=== PATIENT | female | born 2005 | race Caucasian/White ===

== ENCOUNTER 2025-03-06 11:58 | Inpatient (IN) ==
[2025-03-06 13:01] LABS: Hematocrit (blood only) 45.8 % (37.0-47.0); Hemoglobin 15.3 g/dl (12.0-16.0); Immature Granulocytes # (auto) 0.09 K/uL (0.01-0.20); Immature Granulocytes % (auto) 0.9 %; Mean Corpuscular Hemoglobin 30.8 pg (25.0-34.0); Mean Corpuscular Volume 92.3 fL (80.0-100.0); Platelet Count 277 K/uL (130-400); RDW Standard Deviation 42.4 fL (36.4-46.3); Red Blood Count 4.96 M/uL (4.20-5.40); White Blood Count 10.05 K/ul (4.8-10.8)
[2025-03-06] MEDS: PLASMA-LYTE A 1,000 ML IV ONE ×2 (13:06→16:37)
[2025-03-06 13:18] LABS: Alanine Aminotransferase 167.0 U/L (7-52); Albumin Globulin Ratio 1.2 (0.9-2); Albumin Level 4.7 gm/dl (3.4-5.0); Alkaline Phosphatase 47.0 U/L (34-104); Anion Gap 15.0 (3-11); Bilirubin,Total 1.3 mg/dl (0.2-1.0); Blood Urea Nitrogen 14.0 mg/dl (6-23); Calcium 10.3 mg/dl (8.6-10.3); Carbon Dioxide 23.0 mmol/L (21-32); Chloride 99.0 mmol/L (98-107); Creatinine Clr Calc Pharmacy 66.7 ml/min; Globulin 3.8 gm/dl (2.5-4.0); Glucose 101.0 mg/dl (70-99(Fasting)); Lipase 12.0 U/L (11-82); Magnesium 2.4 mg/dl (1.7-2.4); Potassium 3.7 mmol/L (3.5-5.1); Sodium 137.0 mmol/L (136-145); Total Protein 8.5 gm/dl (6.0-8.3)
[2025-03-06] MEDS: ONDANSETRON INJ 2 MG/ML 2 ML VIAL IV STA (13:57)
[2025-03-06 15:23] LABS: Appearance Urine Clear (Clear); Bacteria Urine Automated None Seen (None Seen); Cast Urine Automated 0-2 /lpf (0-2); Glucose Urine UA Negative (Negative); RBC Urine Automated 0-2 /hpf (0-2)
--- NOTE | 2025-03-06 16:00 | Emergency Department Note ---
Impression & Plan Pneumoperitoneum, Nausea, Poor appetite, Elevated LFTs, Anxiety, Pneumomediastinum, Subcutaneous air ED Provider Note NAME: CJ SUAREZ AGE: 19 SEX: F : 2005 ARRIVES VIA: Walk-In INFORMANT: Patient, family ED PROVIDER(S): Juan C Macario DO CHIEF COMPLAINT: poor appetite, nausea HPI: This is a 19-year-old female with the PMHx of anxiety and depression presenting to [facility] for further evaluation of nausea. Patient is accompanied by family who provide additional history. Patient states for the last 5 to 6 months she has been dealing with depression and anxiety. She states that she has had a poor appetite as well as early satiety. She states that she has lost approximately 15 pounds. She states that she has been following up with her PCP to manage her symptoms. She states that she was started on 2 new medications (Zoloft and Cyproheptadine) for her symptoms and anxiety last week. She states that she had significant nausea as well as vomiting from the medications. She states that the vomiting was more severe on Friday. She now reports that she is dry heaving and nauseous. She reports intermittent crampy abdominal pain. Pain is worse in the right upper quadrant. They deny fever or chills. No cough or congestion. Denies chest pain or palpitations. No shortness of breath. No urinary complaints. No recent changes in bowel movements. Patient was recently started on too many new medications by her primary care physician given ongoing depression and anxiety. She states that she feels like she is tolerating the Zoloft but that with her medication is worsening her nausea and appetite. Does endorse intermittently using vaping tobacco. She denies possibility of , she is complaint with OCP. Patient offers no other complaints, today. ADDITIONAL HISTORY OBTAINED: Per HPI Chronic Medical/Social Conditions Affecting Care: Per HPI PAST MEDICAL HISTORY: See Below PAST SURGICAL HISTORY: See Below FAMILY HISTORY: See Below SOCIAL HISTORY: See Below HOME MEDICATIONS: See Below ALLERGIES: See Below VITALS: See Below PHYSICAL EXAMINATION: GENERAL: Sitting up in bed, alert, well appearing, well nourished, no distress, non-toxic EYE EXAM: normal conjunctiva. PERRL and EOM's grossly intact. OROPHARYNX: no exudate, no erythema, lips, buccal mucosa, and tongue normal and mucous membranes are moist NECK: supple, no nuchal rigidity, no adenopathy, non-tender LUNGS: Clear to auscultation. Normal chest wall mechanics HEART: no murmurs, regular rate, regular rhythm ABDOMEN: abdomen soft, minimal RUQ TTP, no masses, no rebound or guarding. BACK: Back is symmetrical on inspection and there is no deformity, no midline tenderness, no CVA tenderness. SKIN: no rashes and no bruising UPPER EXTREMITIES: upper extremities are grossly normal. LOWER EXTREMITIES: No pitting edema. NEURO EXAM: Normal sensorium, GCS 15, normal speech, no gross weakness of arms, no gross weakness of legs. She is anxious and tearful. MEDICAL DECISION MAKING: Differential diagnoses includes but not limited to appendicitis, bowel obstruction, diverticulitis, malignancy, nephrolithiasis, gastroenteritis, pancreatitis, hepatobiliary disease, UTI, medication side effect, anxiety, pneumomediastinum, Boerhaave syndrome, esophageal perforation, gastritis, gastric ulcer perforation, duodenal perforation In summary, this is a 19 year old female who presented with nausea. Differential as above. Nursing notes and pertinent past medical records reviewed. Vital signs reviewed and the patient is tachycardic but otherwise afebrile and HDS. History and presentation revealed she has been struggling with weight loss and poor mental health for 5-6 months. She has had a 15 pound weight loss. Worsening nausea and vomiting on Friday after initiating medications for anxiety. She did have significant vomiting on Friday. Physical examination revealed minimal tenderness in the right upper quadrant. Otherwise she appears hypovolemic. Patient appears well otherwise. As a result of my initial evaluation, we will plan for labs and IV fluid resuscitation with antiemetics. Do suspect that this could be related to her worsening mental health. Could be a medication side effect. Would also consider gastrointestinal pathology. She has had bowel function and no abdominal surgical history. Doubt SBO at this time. No significant infectious signs or symptoms. Patient completed laboratory studies and imaging. Results independently interpreted by me are no significant leukocytosis or anemia. Anion gap mildly elevated. Does have a transaminitis with total bilirubin of 1.3, AST of 180, and ALT of 167. Alkaline phosphatase is normal. Lipase is normal. Urinalysis did not show evidence of UTI. Mononucleosis screening was negative. Given transaminitis and early satiety/poor appetite as well as nausea, we will proceed with ultrasound of the gallbladder for further evaluation but feel this is less likely. Right upper quadrant ultrasound was independently interpreted by me as negative for significant cholelithiasis or acute cholecystitis. Unclear etiology of the patient's transaminitis and I recommended further workup as an outpatient with her primary care physician. Patient and family were comfortable with this. She did have significant improvement from IV fluid resuscitation and IV Zofran. The patient feels comfortable with discharge home with Zofran ODT. Will provide this with a togo pack. I recommended increased hydration. I recommend that she continues with therapy and her Zoloft. Do feel it is reasonable to stop the other medication if she is having potential side effects. Patient will return for failure to improve or any clinical deterioration. Formal ultrasound was unremarkable of the gallbladder. I was preparing to discharge the patient but she has recurrent nausea and right-sided abdominal pain. Patient states that she is anxious and she feels comfortable going home. Patient is tearful and crying. I do not feel comfortable discharging the patient at this point. Will provide further IV fluid resuscitation as well as IV droperidol. Will obtain a CT abdomen/pelvis for further investigation into the patient's symptoms. CT abdomen/pelvis independently reviewed by me shows pneumoperitoneum. She has subcutaneous air extending into the soft tissue of the abdominal wall and the right lower extremity as well. Will add on broad-spectrum antibiotics. Stat read by radiology requested. Connected with [facility] radiology. Dr. Knox connected to pa at [id number]. Pneumomediastinum into the retroperitoneum which is concerning for possible GI rupture source. Attempt PO contrast with NGT if necessary for CT CAP. The patient was discussed with Dr. Sharif (General Surgery). He recommended proceeding with CT prior to possible transfer. Patient signed out to Dr. George pending CT results. Consults/Care Managements Discussions: Per MDM ER treatment provided: See above Procedures:none Critical Care: None The chart was completed utilizing [employer] voice recognition software. Grammatical errors, random word insertions, pronoun errors, and incomplete sentences are an occasional consequence of this system due to software limitations, ambient noise, and hardware issues. Any formal questions or concerns about the content, text, or information contained within the body of this dictation should be directly addressed to the physician for clarification. Past Med/Surg History Problem List (Updated 03/08/25 @ 09:57 by Juan C Macario DO) Subcutaneous air (Acute) Pneumomediastinum (Acute) Pneumoperitoneum (Acute) Starvation ketoacidosis Pneumoperitoneum Pneumomediastinum Intractable nausea and vomiting Anxiety (Acute) Elevated LFTs (Acute) Poor appetite (Acute) Nausea (Acute) Scalp laceration (Acute) Family History (Updated 03/06/25 @ 22:38 by Ruddy Jenkins MD) Mother Endometriosis Social History (Updated 03/07/25 @ 12:12 by Harjeet Narayanan MD) Smoking Status: Former smoker Tobacco Type: E-cigarettes / Vaping Second Hand Exposure: No; Do You Dip or Chew Tobacco: No; Tobacco Cessation Education Requested by Patient: No Hx Alcohol Use: No Hx Substance Use: No Preferred Language: [place] Communication Ability: Effective Clinical Project Manager Required: No Beliefs That Will Affect Care: None Current Living Situation: Family Other Information That Helps Us Care for You: No Feels Safe at Home: Yes Safety Concerns: Feels Safe At This Time Assistive Devices: None Allergies Allergies Allergy/AdvReac Type Severity Reaction Status Date / Time No Known Allergies Allergy Unknown Verified 05/15/15 15:59 Home Meds Home Medications Medication Instructions Recorded Confirmed Flintstones Multivitamin 2 tabs PO DAILY ##0 05/15/15 03/06/25 cyproheptadine 4 mg tablet 4 mg PO UD 03/06/25 03/06/25 norethindrone acetate 1.5 1 tab PO DAILY 03/06/25 03/06/25 mg-ethinyl estradiol 30 mcg tablet ([place]) sertraline 25 mg tablet 25 mg PO DAILY 03/06/25 03/06/25 Results & Data (ED) Vital Signs Vital Signs - 24 hr 03/06/25 12:04 03/06/25 12:30 03/06/25 12:30 Temperature 36.9 C Temperature Source Temporal Artery Scan Pulse Rate 138 H 91 H Pulse Rate [Apical] 91 H Respiratory Rate 20 16 16 Respiratory Effort / Characteristics Non-Labored Respiratory Depth Normal Blood Pressure 152/81 H Blood Pressure [Right Arm] 147/91 H Blood Pressure Mean 104 Blood Pressure Mean [Right Arm] 109 Pulse Oximetry 99 99 99 Oxygen Delivery Method Room Air Room Air Room Air Sepsis Recent Fever Within 48 Hours No Sepsis New/Unexplained Change in Mental Status No Sepsis Action Taken by Nursing No Action Required 03/06/25 13:00 03/06/25 13:19 03/06/25 15:00 Temperature Temperature Source Pulse Rate 78 Pulse Rate [Apical] 89 84 Respiratory Rate 18 16 Respiratory Effort / Characteristics Respiratory Depth Blood Pressure Blood Pressure [Right Arm] 140/87 141/84 H Blood Pressure Mean Blood Pressure Mean [Right Arm] 104 103 Pulse Oximetry 99 98 Oxygen Delivery Method Room Air Room Air Sepsis Recent Fever Within 48 Hours Sepsis New/Unexplained Change in Mental Status Sepsis Action Taken by Nursing 03/06/25 17:00 03/06/25 17:30 03/06/25 19:00 Temperature Temperature Source Pulse Rate 77 Pulse Rate [Apical] 81 60 Respiratory Rate 18 16 Respiratory Effort / Characteristics Respiratory Depth Blood Pressure Blood Pressure [Right Arm] 112/70 113/67 Blood Pressure Mean Blood Pressure Mean [Right Arm] 84 82 Pulse Oximetry 97 96 Oxygen Delivery Method Room Air Room Air Sepsis Recent Fever Within 48 Hours Sepsis New/Unexplained Change in Mental Status Sepsis Action Taken by Nursing Laboratory Data 03/08/25 05:49 03/08/25 05:49 Lab Results 03/06/25 03/06/25 03/06/25 Range/Units 12:17 14:02 14:45 WBC 10.05 (4.8-10.8) K/ul RBC 4.96 (4.20-5.40) M/uL Hgb 15.3 (12.0-16.0) g/dl Hct 45.8 (37.0-47.0) % MCV 92.3 (80.0-100.0) fL MCH 30.8 (25.0-34.0) pg MCHC 33.4 (32.0-36.0) g/dL RDW Std Deviation 42.4 (36.4-46.3) fL RDW Coeff of Kristyn 12.4 (11.5-14.5) % Plt Count 277 (130-400) K/uL MPV 11.4 (9.4-12.4) fL Immature Gran % (Auto) 0.9 % Neut % (Auto) 81.4 % Lymph % (Auto) 12.9 % [place] % (Auto) 4.0 % Eos % (Auto) 0.4 % Baso % (Auto) 0.4 % Neut # (Auto) 8.18 H (1.40-6.50) K/uL Lymph # (Auto) 1.30 (1.20-3.40) K/uL [place] # (Auto) 0.40 (0.11-0.59) K/uL Eos # (Auto) 0.04 (0.00-0.50) K/uL Baso # (Auto) 0.04 (0.00-0.20) K/uL Immature Gran # (Auto) 0.09 (0.01-0.20) K/uL Sodium 137 (136-145) mmol/L Potassium 3.7 (3.5-5.1) mmol/L Chloride 99 (98-107) mmol/L Carbon Dioxide 23 (21-32) mmol/L Anion Gap 15 H (3-11) BUN 14 (6-23) mg/dl Creatinine 1.06 (0.6-1.2) mg/dl Est Cr Clr Drug Dosing 66.7 ml/min eGFR 77.13 BUN/Creatinine Ratio 13.2 (10-20) Glucose 101 H (70-99(Fasting)) mg/dl Calcium 10.3 (8.6-10.3) mg/dl Magnesium 2.4 (1.7-2.4) mg/dl Total Bilirubin 1.3 H (0.2-1.0) mg/dl AST 180 H (13-39) U/L ALT 167 H (7-52) U/L Alkaline Phosphatase 47 (34-104) U/L Total Protein 8.5 H (6.0-8.3) gm/dl Albumin 4.7 (3.4-5.0) gm/dl Globulin 3.8 (2.5-4.0) gm/dl Albumin/Globulin Ratio 1.2 (0.9-2) Lipase 12 (11-82) U/L HCG, Quant 1 mIU/ml Urine Color Yellow Urine Appearance Clear (Clear) Urine pH 7.0 (4.5-7.5) Ur Specific [place] 1.030 (1.000-1.030) Urine Protein Trace H (Negative) Urine Glucose (UA) Negative (Negative) Urine Ketones 3+ H (Negative) Urine Blood Negative (Negative) Urine Nitrite Negative (Negative) Urine Bilirubin Negative (Negative) Urine Urobilinogen Negative (Negative) Ur Leukocyte Esterase Trace H (Negative) Urine WBC (Auto) 6-10 H (0-5) /hpf Urine RBC (Auto) 0-2 (0-2) /hpf U Hyaline Cast (Auto) 0-2 (0-2) /lpf U Epithel Cells (Auto) 3-5 H (0-2) /hpf Urine Bacteria (Auto) None Seen (None Seen) Urine Comment Monoscreen Negative (Negative) Administered Medications Dextromethorphan Polymer Complex (Dextromethorphan Polymr Complx 30mg/5 Ml Btl) 30 mg PO Q12H ANTOINETTE Stop: 04/06/25 11:59 Last Admin: 03/07/25 23:25 Dose: 30 mg Documented By: Admin: 03/07/25 12:39 Dose: 30 mg Documented By: keof Pantoprazole Sodium (Protonix) 40 mg in 10 mls @ 5 mls/min IV DAILY ANTOINETTE Stop: 04/05/25 23:33 Last Admin: 03/07/25 09:08 Dose: 5 mls/min Documented By: Admin: 03/07/25 00:25 Dose: 5 mls/min Documented By: MATILDA Acetaminophen (Ofirmev) 1,000 mg in 100 mls @ 400 mls/hr IV Q8H PRN PRN Reason: Pain or Fever Stop: 03/09/25 23:33 Last Infusion: 03/07/25 10:58 Dose: Infused Documented By: keof Admin: 03/07/25 10:43 Dose: 400 mls/hr Documented By: andrei Dextrose/Sodium Chloride (D5w And Nss) 1,000 mls @ 100 mls/hr IV .Q10H ANTOINETTE Stop: 03/08/25 17:59 Last Admin: 03/07/25 23:24 Dose: 100 mls/hr Documented By: Infusion: 03/07/25 22:39 Dose: Infused Documented By: Admin: 03/07/25 12:39 Dose: 100 mls/hr Documented By: keof Melatonin (Melatonin 3 Mg Tab) 3 mg PO HS PRN PRN Reason: Sleep Stop: 04/06/25 22:03 Last Admin: 03/07/25 22:07 Dose: 3 mg Documented By: FILIBERTO Ondansetron HCl (Ondansetron Inj 2 Mg/Ml 2 Ml Vial) 4 mg IV Q6H ANTOINETTE Stop: 04/05/25 23:33 Last Admin: 03/08/25 06:29 Dose: 4 mg Documented By: Admin: 03/07/25 23:24 Dose: 4 mg Documented By: Admin: 03/07/25 17:13 Dose: 4 mg Documented By: dlf Admin: 03/07/25 11:42 Dose: 4 mg Documented By: dlf Admin: 03/07/25 05:22 Dose: 4 mg Documented By: Admin: 03/07/25 00:25 Dose: 4 mg Documented By: MATILDA Discontinued Medications Droperidol (Droperidol 5 Mg/2 Ml Vial) 0.625 mg IV ONE STA Stop: 03/06/25 16:14 Last Admin: 03/06/25 16:37 Dose: 0.625 mg Documented By: chelle Parenteral Electrolytes (Plasma-Lyte A Ph 7.4) 1,000 mls @ 999 mls/hr IV .Q1H1M ONE Stop: 03/06/25 13:38 Last Infusion: 03/06/25 14:43 Dose: Infused Documented By: amkedar Admin: 03/06/25 13:06 Dose: 999 mls/hr Documented By: amkedar Parenteral Electrolytes (Plasma-Lyte A Ph 7.4) 1,000 mls @ 999 mls/hr IV .Q1H1M ONE Stop: 03/06/25 17:13 Last Infusion: 03/06/25 17:56 Dose: Infused Documented By: amkedar Admin: 03/06/25 16:37 Dose: 999 mls/hr Documented By: amkedar Piperacillin Sod/Tazobactam Sod (Zosyn) 4.5 gm in 100 mls @ 200 mls/hr IV NOW ONE; Protocol Stop: 03/06/25 18:15 Last Infusion: 03/06/25 19:07 Dose: Infused Documented By: amg Admin: 03/06/25 17:56 Dose: 200 mls/hr Documented By: amg Potassium Chloride/Sodium Chloride (Normal Saline W/20 Meq Kcl) 20 meq in 1,000 mls @ 100 mls/hr IV .Q10H ANTOINETTE Stop: 03/07/25 19:33 Last Infusion: 03/07/25 12:47 Dose: Infused Documented By: dlf Infusion: 03/07/25 12:44 Dose: 0 mls/hr Documented By: andrei Admin: 03/07/25 09:09 Dose: 100 mls/hr Documented By: Infusion: 03/07/25 09:09 Dose: Infused Documented By: Admin: 03/07/25 00:16 Dose: 100 mls/hr Documented By: MATILDA Piperacillin Sod/Tazobactam Sod (Zosyn) 4.5 gm in 100 mls @ 25 mls/hr IV Q8H [facility]; Protocol Stop: 03/09/25 01:59 Last Infusion: 03/08/25 07:52 Dose: Infused Documented By: Admin: 03/08/25 03:56 Dose: 25 mls/hr Documented By: Infusion: 03/07/25 21:56 Dose: Infused Documented By: Admin: 03/07/25 17:13 Dose: 25 mls/hr Documented By: andrei Infusion: 03/07/25 13:08 Dose: Infused Documented By: andrei Admin: 03/07/25 09:08 Dose: 25 mls/hr Documented By: Infusion: 03/07/25 05:27 Dose: Infused Documented By: Admin: 03/07/25 01:37 Dose: 25 mls/hr Documented By: MATILDA Ioversol (Optiray 320 100ml) 90 ml IV ONCE ONE Stop: 03/06/25 17:26 Last Admin: 03/06/25 17:25 Dose: 90 ml Documented By: HARRISON Ondansetron HCl (Ondansetron Inj 2 Mg/Ml 2 Ml Vial) 4 mg IV NOW STA Stop: 03/06/25 13:50 Last Admin: 03/06/25 13:57 Dose: 4 mg Documented By: chelle Ondansetron HCl (Ondansetron Home Pack 4mg Od Tab) 1 each PO NOW ONE Stop: 03/06/25 16:35 Last Admin: 03/06/25 18:57 Dose: Not Given Documented By: CHRISTINE Ondansetron HCl (Ondansetron Inj 2 Mg/Ml 2 Ml Vial) Confirm Administered Dose 4 mg .ROUTE .STK-MED ONE Stop: 03/06/25 18:54 Last Admin: 03/06/25 18:55 Dose: 4 mg Documented By: DARREL Imaging Data Radiologist's Impression: Gallbladder Ultrasound 03/06/25 13:44 EXAM: US Abdomen Limited Gallbladder INDICATION: Nausea, pain and elevated liver function tests. TECHNIQUE: Real-time ultrasound of the gallbladder with image documentation. COMPARISON: No relevant prior studies available. FINDINGS: Gallbladder: No gallstones, wall thickening or surrounding fluid. Common bile duct: No significant abnormality noted. No stones. No dilation. Pancreas: No significant abnormality noted. IMPRESSION: Normal gallbladder ultrasound. ACT 112: N/A Electronically signed by Irena Knox 03-06-2025 4:04 PM Abdomen/Pelvis CT 03/06/25 16:13 EXAM: CT Abdomen and Pelvis With Intravenous Contrast INDICATION: Nausea and vomiting. TECHNIQUE: Axial computed tomography images of the abdomen and pelvis with intravenous contrast. Sagittal and coronal reformatted images were created and reviewed. This CT exam was performed using one or more of the following dose reduction techniques: automated exposure control, adjustment of the mA and/or kV according to patient size, and/or use of iterative reconstruction technique. CONTRAST: 90 ml of Optiray 320 was administered intravenously. COMPARISON: No relevant prior studies available. FINDINGS: Limitations: None. Lung bases: No abnormality noted. Pleural space: No visualized pleural effusion or pneumothorax. Heart: No abnormality noted. Mediastinum: There is extensive pneumomediastinum, retroperitoneal emphysema and small amounts of free intraperitoneal air. ABDOMEN: Liver: No abnormality noted. Gallbladder and bile ducts: No calcified stones or surrounding fluid. No ductal dilation. Pancreas: Homogeneous enhancement. No mass, inflammation or ductal dilation. Spleen: No significant abnormality noted. Adrenals: No significant abnormality noted. Kidneys and ureters: Normal enhancement. No mass, hydronephrosis or visualized stone. Stomach and bowel: Intestinal assessment is limited in the absence of enteric contrast. PELVIS: Appendix: No findings to suggest acute appendicitis. Bladder: No filling defects to suggest mass or large stone. No inflammation. Reproductive: No abnormalities noted. ABDOMEN and PELVIS: Intraperitoneal space: No free air. No significant fluid collection. Bones/joints: No acute changes. Soft tissues: There is subcutaneous gas extending along the flanks into the right groin. Vasculature: No abdominal aortic aneurysm. Lymph nodes: No pathologically enlarged lymph nodes. IMPRESSION: Extensive pneumoperitoneum, emphysematous changes in the retroperitoneum, small amounts of free air in the peritoneal cavity and dissecting subcutaneous gas in the flanks to the right groin. These findings generally reflect perforation possibly from the duodenum into the retroperitoneum and extending into the chest. Repeat CT of the abdomen and pelvis and scan of the chest recommended following oral contrast to assess for gastric perforation. Findings discussed with Juan C at 6pm . ACT 112: N/A Electronically signed by Irena Knox 03-06-2025 6:02 PM Abdomen/Pelvis CT 03/06/25 18:00 EXAMINATION: CT of the chest, abdomen and pelvis performed without the administration of IV contrast, with oral contrast TECHNIQUE: Helical CT images from the lung apices through the symphysis pubis were obtained without IV contrast, and with oral contrast. Coronal and sagittal reformatted images were generated at a workstation for further assessment. Dose reduction techniques were achieved by using automatic exposure control and/or adjustment of mA and/or kV according to patient size and/or use of iterative reconstruction technique. COMPARISON: Same-day CT abdomen/pelvis HISTORY: Pneumomediastinum FINDINGS: Redemonstrated extensive pneumomediastinum, with soft tissue gas throughout the base of the neck, the upper portions of the back and axillary regions. The free air extends into the abdomen/pelvis region, primarily involving the pneumoperitoneum, surrounding the kidneys, and tracking into the iliopsoas musculature, and into the subcutaneous tissues of the groin, primarily on the right, and into the anterior hip and thigh musculature fascial planes. There is air seen in the prevesical space. There does not appear to be significant intraperitoneal air. There is also free air tracking anterior and posterior to the liver and spleen. Oral contrast administered, with some seen in the lower esophagus and stomach, also into the duodenum, and throughout the proximal small bowel, without extravasation. There is also no free fluid in the chest or abdomen. No consolidation of the lungs. No pneumothorax. Air seems to track along the surface of the hemithoraces, however which appears deep to the parietal pleura without resulting in pneumothorax. A few curvilinear areas of air is seen to track through the lung parenchyma as seen in the left lower lobe on series 3 image 53. No solid organ injury in the chest, abdomen or pelvis. The abdominal and pelvic organs appear unchanged from the CT from earlier today. The heart, pulmonary artery and thoracic aorta are within normal limits. IMPRESSION: Extensive pneumomediastinum, as well as air tracking into the subcutaneous tissues of the chest and body wall. Emphysema tracking below the diaphragm, appears to be primarily retroperitoneal, and tracks into the inguinal soft tissues and the fascial planes of the hip musculature. There does not appear to be true free air in the peritoneum. 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 Findings discussed with Dr. Macario by Dr. Mcmullen at 7:15 PM, 03/06/2025 Electronically signed by Regino Mcmullen 03-06-2025 7:[address] 03/06/25 18:00 EXAMINATION: CT of the chest, abdomen and pelvis performed without the administration of IV contrast, with oral contrast TECHNIQUE: Helical CT images from the lung apices through the symphysis pubis were obtained without IV contrast, and with oral contrast. Coronal and sagittal reformatted images were generated at a workstation for further assessment. Dose reduction techniques were achieved by using automatic exposure control and/or adjustment of mA and/or kV according to patient size and/or use of iterative reconstruction technique. COMPARISON: Same-day CT abdomen/pelvis HISTORY: Pneumomediastinum FINDINGS: Redemonstrated extensive pneumomediastinum, with soft tissue gas throughout the base of the neck, the upper portions of the back and axillary regions. The free air extends into the abdomen/pelvis region, primarily involving the pneumoperitoneum, surrounding the kidneys, and tracking into the iliopsoas musculature, and into the subcutaneous tissues of the groin, primarily on the right, and into the anterior hip and thigh musculature fascial planes. There is air seen in the prevesical space. There does not appear to be significant intraperitoneal air. There is also free air tracking anterior and posterior to the liver and spleen. Oral contrast administered, with some seen in the lower esophagus and stomach, also into the duodenum, and throughout the proximal small bowel, without extravasation. There is also no free fluid in the chest or abdomen. No consolidation of the lungs. No pneumothorax. Air seems to track along the surface of the hemithoraces, however which appears deep to the parietal pleura without resulting in pneumothorax. A few curvilinear areas of air is seen to track through the lung parenchyma as seen in the left lower lobe on series 3 image 53. No solid organ injury in the chest, abdomen or pelvis. The abdominal and pelvic organs appear unchanged from the CT from earlier today. The heart, pulmonary artery and thoracic aorta are within normal limits. IMPRESSION: Extensive pneumomediastinum, as well as air tracking into the subcutaneous tissues of the chest and body wall. Emphysema tracking below the diaphragm, appears to be primarily retroperitoneal, and tracks into the inguinal soft tissues and the fascial planes of the hip musculature. There does not appear to be true free air in the peritoneum. 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 Findings discussed with Dr. Macario by Dr. Mcmullen at 7:15 PM, 03/06/2025 Electronically signed by Regino Mcmullen 03-06-2025 7:18 PM Discharge Plan Visit Data Chief Complaint: Illness Stated Complaint: SICK ED Provider: Juna George Discharge Problem: Pneumoperitoneum, Nausea, Poor appetite, Elevated LFTs, Anxiety, Pneumomediastinum, Subcutaneous air Patient Disposition: Admitted As Inpatient Condition: Fair Discharge Instructions Interventions: ED Discharge Assessment Last Done: 03/06/25 23:20
--- NOTE | 2025-03-06 16:04 | Ultrasound Report ---
EXAM: US Abdomen Limited Gallbladder INDICATION: Nausea, pain and elevated liver function tests. TECHNIQUE: Real-time ultrasound of the gallbladder with image documentation. COMPARISON: No relevant prior studies available. FINDINGS: Gallbladder: No gallstones, wall thickening or surrounding fluid. Common bile duct: No significant abnormality noted. No stones. No dilation. Pancreas: No significant abnormality noted. IMPRESSION: Normal gallbladder ultrasound. ACT 112: N/A Electronically signed by Irena Knox 03-06-2025 4:04 PM
[2025-03-06] MEDS: DROPERIDOL 5 MG/2 ML VIAL IV STA (16:37)
[2025-03-06] MEDS: OPTIRAY 320 100ml IV ONE (17:25)
[2025-03-06] MEDS: PIPERACILLIN/TAZOBACTAM 4.5 GM/100 ML BAG IV ONE (17:56)
--- NOTE | 2025-03-06 18:02 | CT Scan Report ---
EXAM: CT Abdomen and Pelvis With Intravenous Contrast INDICATION: Nausea and vomiting. TECHNIQUE: Axial computed tomography images of the abdomen and pelvis with intravenous contrast. Sagittal and coronal reformatted images were created and reviewed. This CT exam was performed using one or more of the following dose reduction techniques: automated exposure control, adjustment of the mA and/or kV according to patient size, and/or use of iterative reconstruction technique. CONTRAST: 90 ml of Optiray 320 was administered intravenously. COMPARISON: No relevant prior studies available. FINDINGS: Limitations: None. Lung bases: No abnormality noted. Pleural space: No visualized pleural effusion or pneumothorax. Heart: No abnormality noted. Mediastinum: There is extensive pneumomediastinum, retroperitoneal emphysema and small amounts of free intraperitoneal air. ABDOMEN: Liver: No abnormality noted. Gallbladder and bile ducts: No calcified stones or surrounding fluid. No ductal dilation. Pancreas: Homogeneous enhancement. No mass, inflammation or ductal dilation. Spleen: No significant abnormality noted. Adrenals: No significant abnormality noted. Kidneys and ureters: Normal enhancement. No mass, hydronephrosis or visualized stone. Stomach and bowel: Intestinal assessment is limited in the absence of enteric contrast. PELVIS: Appendix: No findings to suggest acute appendicitis. Bladder: No filling defects to suggest mass or large stone. No inflammation. Reproductive: No abnormalities noted. ABDOMEN and PELVIS: Intraperitoneal space: No free air. No significant fluid collection. Bones/joints: No acute changes. Soft tissues: There is subcutaneous gas extending along the flanks into the right groin. Vasculature: No abdominal aortic aneurysm. Lymph nodes: No pathologically enlarged lymph nodes. IMPRESSION: Extensive pneumoperitoneum, emphysematous changes in the retroperitoneum, small amounts of free air in the peritoneal cavity and dissecting subcutaneous gas in the flanks to the right groin. These findings generally reflect perforation possibly from the duodenum into the retroperitoneum and extending into the chest. Repeat CT of the abdomen and pelvis and scan of the chest recommended following oral contrast to assess for gastric perforation. Findings discussed with Juan C at 6pm . ACT 112: N/A Electronically signed by Irena Knox 03-06-2025 6:02 PM
[2025-03-06] MEDS: ONDANSETRON INJ 2 MG/ML 2 ML VIAL ONE (18:55)
[2025-03-06] MEDS: ONDANSETRON HOME PACK 4MG OD TAB PO ONE (18:57)
--- NOTE | 2025-03-06 19:18 | CT Scan Report ---
EXAMINATION: CT of the chest, abdomen and pelvis performed without the administration of IV contrast, with oral contrast TECHNIQUE: Helical CT images from the lung apices through the symphysis pubis were obtained without IV contrast, and with oral contrast. Coronal and sagittal reformatted images were generated at a workstation for further assessment. Dose reduction techniques were achieved by using automatic exposure control and/or adjustment of mA and/or kV according to patient size and/or use of iterative reconstruction technique. COMPARISON: Same-day CT abdomen/pelvis HISTORY: Pneumomediastinum FINDINGS: Redemonstrated extensive pneumomediastinum, with soft tissue gas throughout the base of the neck, the upper portions of the back and axillary regions. The free air extends into the abdomen/pelvis region, primarily involving the pneumoperitoneum, surrounding the kidneys, and tracking into the iliopsoas musculature, and into the subcutaneous tissues of the groin, primarily on the right, and into the anterior hip and thigh musculature fascial planes. There is air seen in the prevesical space. There does not appear to be significant intraperitoneal air. There is also free air tracking anterior and posterior to the liver and spleen. Oral contrast administered, with some seen in the lower esophagus and stomach, also into the duodenum, and throughout the proximal small bowel, without extravasation. There is also no free fluid in the chest or abdomen. No consolidation of the lungs. No pneumothorax. Air seems to track along the surface of the hemithoraces, however which appears deep to the parietal pleura without resulting in pneumothorax. A few curvilinear areas of air is seen to track through the lung parenchyma as seen in the left lower lobe on series 3 image 53. No solid organ injury in the chest, abdomen or pelvis. The abdominal and pelvic organs appear unchanged from the CT from earlier today. The heart, pulmonary artery and thoracic aorta are within normal limits. IMPRESSION: Extensive pneumomediastinum, as well as air tracking into the subcutaneous tissues of the chest and body wall. Emphysema tracking below the diaphragm, appears to be primarily retroperitoneal, and tracks into the inguinal soft tissues and the fascial planes of the hip musculature. There does not appear to be true free air in the peritoneum. 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 Findings discussed with Dr. Macario by Dr. Mcmullen at 7:15 PM, 03/06/2025 Electronically signed by Regino Mcmullen 03-06-2025 7:18 PM
--- NOTE | 2025-03-06 19:39 | Surgery Consultation ---
Date of Consultation March 06, 2025 Assessment & Plan (1) Pneumomediastinum: The patient is a 19-year-old female who presented to the emergency department with complaints of on going nausea and abdominal pain. Over the last few months she has had depression and anxiety, causing her to have overall poor appetite along with an approximate 15 pound weight loss. Last week she has been started two medications (Zoloft and Cyproheptadine) to help with her symptoms by her PCP and since then she has had nausea and recently some episodes of vomiting from the medications. Her vomiting was the most severe on Friday however now she is having more dry-heaving and intermittent R UQ/epigastric abdominal pain. The patient underwent workup and labs unremarkable, VSS, but CT imaging was concerning for pneumomediastinum along with pneumoperitoneum. Emergency room provider did speak to attending surgeon information services tech, Dr. Sharif, who recommended repeating the imaging with oral contrast to further evaluate source of free air. While repeat imaging was pending, the patient was seen and evaluated at bedside. She is resting comfortably, VSS, and she has no signs of acute abdomen on exam that would warrant emergent surgical intervention. Repeat imaging was obtained showing extensive pneumomediastinum as well as air tracking into the subcutaneous tissue of the chest and body wall along with emphysema tracking below the diaphragm primarily retroperitoneal with no true free air in the peritoneum. Likely this is related to alveolar rupture. Recommend with these findings the emergency room provider reach out to our pulmonology team to further discuss patient's case for possible admission here vs transfer to tertiary center. Pulmonology feels patient is stable for admission here with [id number] antitussives and antiemetics and close respiratory monitoring. Patient will be admitted to the medical service at this time. Appreciate pulmonology input and recommendations. From a general surgery perspective, no intervention warranted. Please re-call with any questions or concerns (2) Pneumoperitoneum: (3) Intractable nausea and vomiting: History of Present Illness Reason for Consultation: Pneumomediastinum Pneumoperitoneum History of Present Illness The patient is a 19-year-old female who presented to the emergency department with complaints of on going nausea and abdominal pain. The patient states that over the last few months she has had depression and anxiety, causing her to have overall poor appetite along with an approximate 15 pound weight loss. Last week she has been started two medications (Zoloft and Cyproheptadine) to help with her symptoms by her PCP and since then she has had nausea and recently some episodes of vomiting from the medications. Her vomiting was the most severe on Friday however now she is having more dry-heaving. She states that her abdominal pain is intermittent, and crampy in nature, and mostly is located in her RUQ/epigastric region. She denies any changes in bowel or bladder habits, new onset of fevers or chills, also denies CP or SOB. Due to the patient's symptoms she came to the emergency department for further evaluation. Upon workup labs are unremarkable however CT imaging obtained with concern of significant amount of pneumomediastinum and pneumoperitoneum. The patient's case was discussed with attending surgeon information services tech, Dr. Sharif, who recommended repeating the imaging with oral contrast and general surgery team would evaluate the patient. The patient was seen and evaluated this evening at bedside in the emergency department. She is accompanied by her family. She is resting comfortably in bed, VSS, and is nontoxic appearing. The patient states her abdominal pain is very mild at this time however she does feel nauseous after drinking the oral contrast. She otherwise denies any recent trauma or falls. She has no previous abdominal surgical history. Allergies Allergy/AdvReac Type Severity Reaction Status Date / Time No Known Allergies Allergy Unknown Verified 05/15/15 15:59 Home Medications Medication Instructions Recorded Confirmed Type Flintssantiagoes Multivitamin 2 tabs PO DAILY ##0 05/15/15 03/06/25 History cyproheptadine 4 mg tablet 4 mg PO UD 03/06/25 03/06/25 History norethindrone acetate 1.5 1 tab PO DAILY 03/06/25 03/06/25 History mg-ethinyl estradiol 30 mcg tablet ([place]) sertraline 25 mg tablet 25 mg PO DAILY 03/06/25 03/06/25 History Patient History Family History (Updated 03/06/25 @ 22:38 by Ruddy Jenkins MD) Mother Endometriosis Social History Smoking Status: Never smoker Preferred Language: Jamaican Feels Safe at Home: Yes Review of Systems Constitutional: no fever, no chills and no weakness Respiratory: no cough, no chest congestion and no dyspnea Cardiovascular: no chest pain, no palpitations and no syncope Gastrointestinal: as per Subjective / HPI, + abdominal pain, + early satiety, + nausea and + vomiting; no change in bowel habits Genitourinary: no difficulty urinating and no hematuria Physical Exam Constitutional: WD/WN, vitals as above Respiratory: normal respiratory effort, lungs clear to auscultation Cardiovascular: Rate/Rhythm: regular rate Gastrointestinal (Abdomen): Abdomen soft, nondistended, minimal TTP in the epigastric region No rebound, guarding, or signs of peritonitis Skin: no rashes, warm and dry Results & Data Vital Signs (Past 12 Hours) Vital Signs Temp Pulse Pulse Resp BP BP Pulse Ox 03/06/25 17:30 77 03/06/25 17:00 81 18 112/70 97 03/06/25 15:00 84 16 141/84 H 98 03/06/25 13:19 78 03/06/25 13:00 89 18 140/87 99 03/06/25 12:30 91 H 16 99 03/06/25 12:30 91 H 16 147/91 H 99 03/06/25 12:04 36.9 C 138 H 20 152/81 H 99 O2 Del Method 03/06/25 17:30 03/06/25 17:00 Room Air 03/06/25 15:00 Room Air 03/06/25 13:19 03/06/25 13:00 Room Air 03/06/25 12:30 Room Air 03/06/25 12:30 Room Air 03/06/25 12:04 Room Air Diagnostic Findings EXAMINATION: CT of the chest, abdomen and pelvis performed without the administration of IV contrast, with oral contrast TECHNIQUE: Helical CT images from the lung apices through the symphysis pubis were obtained without IV contrast, and with oral contrast. Coronal and sagittal reformatted images were generated at a workstation for further assessment. Dose reduction techniques were achieved by using automatic exposure control and/or adjustment of mA and/or kV according to patient size and/or use of iterative reconstruction technique. COMPARISON: Same-day CT abdomen/pelvis HISTORY: Pneumomediastinum FINDINGS: Redemonstrated extensive pneumomediastinum, with soft tissue gas throughout the base of the neck, the upper portions of the back and axillary regions. The free air extends into the abdomen/pelvis region, primarily involving the pneumoperitoneum, surrounding the kidneys, and tracking into the iliopsoas musculature, and into the subcutaneous tissues of the groin, primarily on the right, and into the anterior hip and thigh musculature fascial planes. There is air seen in the prevesical space. There does not appear to be significant intraperitoneal air. There is also free air tracking anterior and posterior to the liver and spleen. Oral contrast administered, with some seen in the lower esophagus and stomach, also into the duodenum, and throughout the proximal small bowel, without extravasation. There is also no free fluid in the chest or abdomen. No consolidation of the lungs. No pneumothorax. Air seems to track along the surface of the hemithoraces, however which appears deep to the parietal pleura without resulting in pneumothorax. A few curvilinear areas of air is seen to track through the lung parenchyma as seen in the left lower lobe on series 3 image 53. No solid organ injury in the chest, abdomen or pelvis. The abdominal and pelvic organs appear unchanged from the CT from earlier today. The heart, pulmonary artery and thoracic aorta are within normal limits. IMPRESSION: Extensive pneumomediastinum, as well as air tracking into the subcutaneous tissues of the chest and body wall. Emphysema tracking below the diaphragm, appears to be primarily retroperitoneal, and tracks into the inguinal soft tissues and the fascial planes of the hip musculature. There does not appear to be true free air in the peritoneum. 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 PG Care Time/CCT Total # of Minutes Spent Total Time Spent with Patient: Total time spent is greater than 50% in coordination of care (as documented) at patient's floor/unit and/or counseling patient: [place] [address] IN/OBS CONSULT LVL 2,35M Patient Type New History Problem Focused Exam Problem Focused Medical Decision Making Low Complexity Diagnoses Pneumomediastinum J98.2 Pneumoperitoneum K66.8 Intractable nausea and vomiting R11.2
--- NOTE | 2025-03-06 20:36 | Emergency Department Note ---
ED Visit Note Patient is a 19-year-old female who was signed out to me by Dr. Steve following initial CT which showed a fair amount of free air. He discussed with general surgery and the request was obtaining CT chest abdomen pelvis with oral contrast. This was completed. I spoke with the radiologist. They believe that this is likely from a areolar rupture. I then discussed the case with Radha from general surgery who notes that patient could stay and be admitted here as there is nothing from their perspective surgical. I discussed with Dr. Smith from pulmonology. He also agrees with admission here and [id number] antitussives and antiemetics and close monitoring. Case was discussed with Dr. Jenkins for further evaluation management treatment. Patient was updated at bedside. She remained comfortable. .
--- NOTE | 2025-03-06 20:50 | History & Physical Report ---
Date of Service March 06, 2025 Assessment & Plan (1) Anxiety: (2) Intractable nausea and vomiting: (3) Pneumomediastinum: (4) Pneumoperitoneum: Plan Pneumomediastinum R/O bowel perforation due to intractable nausea, vomiting Pneumoperitoneum likely due to valvular rupture --CT: Extensive pneumomediastinum, as well as air tracking into the subcutaneous tissues of the chest and body wall. Emphysema tracking below the diaphragm, appears to be primarily retroperitoneal, and tracks into the inguinal soft tissues and the fascial planes of the hip musculature. There does not appear to be true free air in the peritoneum. 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 -- N.p.o. for now IV fluids, empirically started on Zosyn Surgery, pulmonology consulted Saturating well on room air Scheduled antiemetics Antitussives as needed Transaminitis Likely due to above Monitor LFTs Anxiety disorder Discontinue Zoloft, cyproheptadine due to intolerance Offered psychiatry evaluation--patient refused Prefers to follow-up with psychologist as outpatient Protein calorie malnutrition Cachexia BMI 14.9 Will consult dietitian as able DVT Px: SCDs for now CODE STATUS Full code I personally interviewed and examined the patient at bedside. I have reviewed blood work, imaging studies. Discussed with ER staff and reviewed old records. I spent a total [id number] coordinating, documenting, and providing care for this patient. History of Present Illness Chief Complaint: Intractable nausea, vomiting Primary Care Provider: Zane Senior MD Patient is a 19-year-old female with history of anxiety disorder, iron deficiency and no other significant medical problems presents with history of intractable nausea, vomiting, abdominal pain. Patient was evaluated by her primary care physician and was started on Zoloft and cyproheptadine recently. After taking first dose of Zoloft and cyproheptadine, patient started to develop intractable nausea, vomiting associated with some abdominal discomfort. Patient states that she had multiple episodes of nonbloody vomiting and reported some right lower quadrant abdominal discomfort dull, aching sensation. Patient had very poor oral intake secondary to nausea. She admits to have significant weight loss of about 6 pounds in the last week. She admits to have lost about 17 pounds since last April 2024. Patient states that over the past 5 to 6 months she has been dealing with anxiety and depression and plans to follow-up with psychotherapist. Intermittently vapes tobacco but denies any drug or alcohol use. Also denies any chest pain, dyspnea, dizziness, cough, fever, chills, headache, blood in stools, diarrhea, dysuria, hematuria. Allergies Allergy/AdvReac Type Severity Reaction Status Date / Time No Known Allergies Allergy Unknown Verified 05/15/15 15:59 Home Medications Medication Instructions Recorded Confirmed Type Flintstones Multivitamin 2 tabs PO DAILY ##0 05/15/15 03/06/25 History cyproheptadine 4 mg tablet 4 mg PO UD 03/06/25 03/06/25 History norethindrone acetate 1.5 1 tab PO DAILY 03/06/25 03/06/25 History mg-ethinyl estradiol 30 mcg tablet ([place]) sertraline 25 mg tablet 25 mg PO DAILY 03/06/25 03/06/25 History Past Med/Surg History Problem List (Updated 03/06/25 @ 22:42 by Ruddy Jenkins MD) Pneumoperitoneum Pneumomediastinum Intractable nausea and vomiting Anxiety (Acute) Elevated LFTs (Acute) Poor appetite (Acute) Nausea (Acute) Scalp laceration (Acute) Family History (Updated 03/06/25 @ 22:38 by Ruddy Jenkins MD) Mother Endometriosis Social History Smoking Status: Never smoker Preferred Language: Ukrainian Feels Safe at Home: Yes Review of Systems Review of Systems: All systems reviewed & are unremarkable except as noted in Subjective Physical Exam Physical Exam: Physical Exam: Vitals signs as noted above General Appearance: Thin, frail, no apparent distress Head: normocephalic, Atraumatic Eyes: normal inspection, EOMI Neck: supple, Trachea midline Respiratory/Chest: Normal breath sounds, B/L crackles, No accessory muscle use Cardiovascular: S1, S2, No murmur Abdomen/GI:Soft, RLQ, LLQ tender, no guarding or rigidity, bowel sounds present Extremities/Musculoskeletal:normal inspection, no edema Neurologic/Psych:AAOX3, grossly no focal neurological deficits Skin: normal color, warm Results & Data Results & Data Vital Signs (Past 12 Hours) Vital Signs Temp Pulse Pulse Resp BP BP Pulse Ox 03/06/25 19:00 60 16 113/67 96 03/06/25 17:30 77 03/06/25 17:00 81 18 112/70 97 03/06/25 15:00 84 16 141/84 H 98 03/06/25 13:19 78 03/06/25 13:00 89 18 140/87 99 03/06/25 12:30 91 H 16 99 03/06/25 12:30 91 H 16 147/91 H 99 03/06/25 12:04 36.9 C 138 H 20 152/81 H 99 O2 Del Method 03/06/25 19:00 Room Air 03/06/25 17:30 03/06/25 17:00 Room Air 03/06/25 15:00 Room Air 03/06/25 13:19 03/06/25 13:00 Room Air 03/06/25 12:30 Room Air 03/06/25 12:30 Room Air 03/06/25 12:04 Room Air Laboratory Results Short CBC 03/06/25 Range/Units 12:17 WBC 10.05 (4.8-10.8) K/ul Hgb 15.3 (12.0-16.0) g/dl Hct 45.8 (37.0-47.0) % Plt Count 277 (130-400) K/uL BMP 03/06/25 12:17 Sodium 137 Potassium 3.7 Chloride 99 Carbon Dioxide 23 BUN 14 Creatinine 1.06 Glucose 101 H Calcium 10.3 Liver Function 03/06/25 Range/Units 12:17 Total Bilirubin 1.3 H (0.2-1.0) mg/dl AST 180 H (13-39) U/L ALT 167 H (7-52) U/L Alkaline Phosphatase 47 (34-104) U/L Albumin 4.7 (3.4-5.0) gm/dl Urine 03/06/25 Range/Units 14:45 Urine Color Yellow Urine Appearance Clear (Clear) Urine pH 7.0 (4.5-7.5) Ur Specific [place] 1.030 (1.000-1.030) Urine Protein Trace H (Negative) Urine Glucose (UA) Negative (Negative) Diagnostic Findings --CT ABD/Chest :Extensive pneumomediastinum, as well as air tracking into the subcutaneous tissues of the chest and body wall. Emphysema tracking below the diaphragm, appears to be primarily retroperitoneal, and tracks into the inguinal soft tissues and the fascial planes of the hip musculature. There does not appear to be true free air in the peritoneum. 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 Medications Administered Home Medications Medication Instructions Recorded Confirmed Flintstones Multivitamin 2 tabs PO DAILY ##0 05/15/15 03/06/25 cyproheptadine 4 mg tablet 4 mg PO UD 03/06/25 03/06/25 norethindrone acetate 1.5 1 tab PO DAILY 03/06/25 03/06/25 mg-ethinyl estradiol 30 mcg tablet ([place]) sertraline 25 mg tablet 25 mg PO DAILY 03/06/25 03/06/25
[2025-03-06] MEDS ORDERED: DEXTROMETHORPHAN POLYMR COMPLX 30MG/5 ML BTL PO PRN (23:34)
[2025-03-07] MEDS: NSS + 20MEQ KCL 20 MEQ/1,000 ML BAG IV SCH (00:16)
[2025-03-07] MEDS: PANTOprazole 40 MG/10 ML SYR IV SCH (00:25)
[2025-03-07] MEDS: ONDANSETRON INJ 2 MG/ML 2 ML VIAL IV SCH (00:25)
[2025-03-07] MEDS: PIPERACILLIN/TAZOBACTAM 4.5 GM/100 ML BAG IV SCH (01:37)
[2025-03-07 06:28] LABS: Hematocrit (blood only) 34.8 % (37.0-47.0); Hemoglobin 11.6 g/dl (12.0-16.0); Mean Corpuscular Hemoglobin 30.8 pg (25.0-34.0); Mean Corpuscular Volume 92.3 fL (80.0-100.0); Platelet Count 186 K/uL (130-400); RDW Standard Deviation 41.9 fL (36.4-46.3); Red Blood Count 3.77 M/uL (4.20-5.40); White Blood Count 7.60 K/ul (4.8-10.8)
[2025-03-07 07:09] LABS: Alanine Aminotransferase 112.0 U/L (7-52); Albumin Globulin Ratio 1.1 (0.9-2); Albumin Level 3.1 gm/dl (3.4-5.0); Alkaline Phosphatase 29.0 U/L (34-104); Anion Gap 9.0 (3-11); Bilirubin,Total 1.3 mg/dl (0.2-1.0); Blood Urea Nitrogen 11.0 mg/dl (6-23); Calcium 8.5 mg/dl (8.6-10.3); Carbon Dioxide 22.0 mmol/L (21-32); Chloride 107.0 mmol/L (98-107); Creatinine Clr Calc Pharmacy 77.7 ml/min; Globulin 2.8 gm/dl (2.5-4.0); Glucose 66.0 mg/dl (70-99(Fasting)); Magnesium 2.4 mg/dl (1.7-2.4); Potassium 4.1 mmol/L (3.5-5.1); Sodium 138.0 mmol/L (136-145); Total Protein 5.9 gm/dl (6.0-8.3)
[2025-03-07] MEDS: ACETAMINOPHEN 1,000 MG/100 ML VIAL IV PRN (10:43)
--- NOTE | 2025-03-07 11:49 | Hospitalist Progress Note ---
Date of Service March 07, 2025 Assessment & Plan (1) Anxiety: (2) Intractable nausea and vomiting: (3) Pneumomediastinum: (4) Pneumoperitoneum: Plan 19-year-old female with history of anxiety disorder, iron deficiency and no other significant medical problems presents with history of intractable nausea, vomiting, abdominal pain. Patient was evaluated by her primary care physician and was started on Zoloft and cyproheptadine recently. After taking first dose of Zoloft and cyproheptadine, patient started to develop intractable nausea, vomiting associated with some abdominal discomfort. Patient states that she had multiple episodes of nonbloody vomiting and reported some right lower quadrant abdominal discomfort dull, aching sensation. Patient had very poor oral intake secondary to nausea. She admits to have significant weight loss of about 6 pounds in the last week SIPHONER. She admits to have lost about 17 pounds since last April 2024. Patient states that over the past 5 to 6 months she has been dealing with anxiety and depression and plans to follow-up with psychotherapist. Intermittently vapes tobacco but denies any drug or alcohol use. She is being managed for the following: Pneumomediastinum R/O bowel perforation due to intractable nausea, vomiting Pneumoperitoneum concern, ruled out --CT: Extensive pneumomediastinum, as well as air tracking into the subcutaneous tissues of the chest and body wall. Emphysema tracking below the diaphragm, appears to be primarily retroperitoneal, and tracks into the inguinal soft tissues and the fascial planes of the hip musculature. There does not appear to be true free air in the peritoneum. 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 -- N.p.o. for now IV fluids w/ [id number], empirically started on Zosyn and PPI, continue Surgery evaled appreciate recs Pulmonology on board, plan for cxr today and possible unenhanced CT chest rae. Saturating well on room air Scheduled antiemetics and chelsea antitussives Transaminitis: Likely due to above, Monitor LFTs - trending down, will add hepatitis panel to am lab Anxiety disorder Discontinue Zoloft, cyproheptadine due to intolerance Offered psychiatry evaluation--patient refused Prefers to follow-up with psychologist as outpatient Protein calorie malnutrition Cachexia BMI 14.9 patient access manager consult will do multivitamins supplementation once PO resumed. DVT Px: SCDs for now CODE STATUS: Full code Admission and Anticipated Discharge Date Admission Date: March 06, 2025 Subjective Patient was seen and examined at bedside. Patient was lying in bed, on room air, NAD. Patient reports chest pain and abdominal pain. Patient reports cough improving and no nausea. Patient's mother at bedside was also updated on plan of care. Discussed the case with pulmonology who recommended possible transfer to higher center ? need for CT surgery eval. Discussed the case with Dr. Dannie Marie at [facility] [place], tobacco blender and myself (threeway conversation over the phone) Dr. Marie from [facility] – [place] recommended conservatively managing the patient here in the hospital. Physical Exam Physical Exam: General Appearance: Thin, frail, no apparent distress Head: normocephalic, Atraumatic Eyes: normal inspection, EOMI Neck: supple, Trachea midline Respiratory/Chest: Normal breath sounds, B/L crackles, No accessory muscle use Cardiovascular: S1, S2, No murmur Sternal chest tenderness on palpation, no crepitus noted along body wall/chest. Abdomen/GI:Soft, RLQ, LLQ mild tender, no guarding or rigidity, bowel sounds present Extremities/Musculoskeletal:normal inspection, no edema Neurologic/Psych:AAOX3, grossly no focal neurological deficits Skin: normal color, warm Results & Data Results & Data Vital Signs (Past 12 Hours) Vital Signs Temp Pulse Pulse Resp BP Pulse Ox O2 Del Method 03/07/25 08:00 52 L 03/07/25 07:40 36.4 C L 59 L 20 126/63 95 Room Air 03/07/25 03:10 52 L 03/07/25 02:34 36.9 C 54 L 20 100/53 L 94 Room Air 03/07/25 00:30 36.6 C 73 16 112/69 97 Room Air
--- NOTE | 2025-03-07 12:38 | Pulmonary Consultation ---
Date of Consultation March 07, 2025 Assessment & Plan (1) Pneumomediastinum: Most likely related to episodes of vomiting as well as dry-heaving (forceful, involuntary retching without expulsion of gastric contents). Unclear chronicity, but no evidence of extravasation of oral contrast on chest CT. Suspicion of alveolar rupture on chest CT ("curvilinear areas of air tracking in the lung parenchyma of the left lower lobe"; air from ruptured alveoli can dissect along peribronchial and perivascular sheaths into the mediastinum (the Lico effect) without breaching the visceral pleura). Subcutaneous emphysema and crepitations still spreading, probably due to external compression, but no suggestion of progression. No suggestion of infection. Consider stopping Zosyn. Will obtain plain CXR for baseline. Will consider follow-up unenhanced chest CT. If symptoms worsen then consideration will have to be given for transfer to healthcare facility with CT surgery coverage. (2) Pneumoperitoneum: Most likely dissection of air from pneumomediastinum. (3) Nausea: Probably related to home medications. (4) Elevated LFTs: Transaminitis. Unclear etiology at this time. (5) Anxiety: (6) Starvation ketoacidosis: Umef-jshjz-hzv metabolic acidosis (mild) along with ketones in the urine in patient with recent nausea, vomiting, and poor appetite. Also patient seemed to have severe dehydration and hemoconcentration (significant drop in H/H and total-Protein after fluid resuscitation). Plan 1- Patient reassured. 2- Consider discontinuation of Zosyn. 3- Will obtain CXR and consider unenhanced Chest CT for follow-up (without breath-hold, at that may contribute to further air dissection. If symptoms worsen then consideration will have to be given for transfer to healthcare facility with CT surgery coverage. History of Present Illness Reason for Consultation: Pneumomediastinum Attending Physician: Alberto Loera MD History of Present Illness The patient is a very pleasant 19-year-old female who presented to the ED for evaluation of ongoing nausea and abdominal pain. Over the preceding 5 to 6 months, she had been experiencing depression and anxiety, which contributed to poor appetite and an approximate 15-17 pound weight loss. She had recently been started on Zoloft and cyproheptadine by her PCP to address her psychiatric symptoms. Following initiation of these medications, she developed significant nausea and multiple episodes of nonbloody vomiting, with the most severe vomiting occurring on the Friday prior to presentation. She subsequently reported persistent dry heaving, intermittent crampy abdominal painprimarily in the right upper quadrant and epigastric regionand early satiety. She denied fever, chills, cough, congestion, chest pain, palpitations, shortness of breath, urinary complaints, or changes in bowel movements. She also denied any recent trauma, falls, or possibility of , and reported compliance with OCPs. She intermittently vaped tobacco but denied drug or alcohol use. She received IV fluids and antiemetics with some improvement, but due to recurrent symptoms and concerning imaging findings, she was admitted for close monitoring, [id number] antitussives and antiemetics, and further evaluation by pulmonology and general surgery. No surgical intervention was deemed necessary. Her past medical history included anxiety disorder and iron deficiency, with no other significant chronic medical problems. The patient continues to feel discomfort in the left side of the neck and left axillary area, as well as RUQ area. Hzbx-yxsqocez-oujaadne chest CT showed no evidence of extravasation of contrast into the mediastinum. However, there was suspicion of possible changes suggestive of alveolar rupture. The patient is already on Zosyn. Phone discussion with CT surgery: no further imaging or endoscopy recommended with the CT being negative for esophageal extravasation. Allergies Allergy/AdvReac Type Severity Reaction Status Date / Time No Known Allergies Allergy Unknown Verified 05/15/15 15:59 Home Medications Medication Instructions Recorded Confirmed Type Flintstones Multivitamin 2 tabs PO DAILY ##0 05/15/15 03/06/25 History cyproheptadine 4 mg tablet 4 mg PO UD 03/06/25 03/06/25 History norethindrone acetate 1.5 1 tab PO DAILY 03/06/25 03/06/25 History mg-ethinyl estradiol 30 mcg tablet ([place]) sertraline 25 mg tablet 25 mg PO DAILY 03/06/25 03/06/25 History Patient History Family History (Updated 03/06/25 @ 22:38 by Ruddy Jenkins MD) Mother Endometriosis Social History (Updated 03/07/25 @ 12:12 by Harjeet Narayanan MD) Smoking Status: Former smoker Tobacco Type: E-cigarettes / Vaping Second Hand Exposure: No; Do You Dip or Chew Tobacco: No; Tobacco Cessation Education Requested by Patient: No Hx Alcohol Use: No Hx Substance Use: No Preferred Language: Slovak Communication Ability: Effective Culinary Assistant Required: No Beliefs That Will Affect Care: None Current Living Situation: Family Other Information That Helps Us Care for You: No Feels Safe at Home: Yes Safety Concerns: Feels Safe At This Time Assistive Devices: None Review of Systems Review of Systems: All systems reviewed & are unremarkable except as noted in HPI & below Physical Exam Physical Exam: Vitals and labs reviewed. General: In no acute distress, sitting up in bed, breathing room-air. Skin: Warm and dry to touch. Noobvious lesions. Occasional subcutaneous crepitations in the area of the left side of the neck as well as left axilla. Eyes: Anicteric.Noconjunctival hyperemia or exudates.No periorbital edema. ENT: No oral thrush. No oropharyngeal erythema or exudates. Neck: No palpable masses or adenopathy (see above skin exam). Respiratory: Normal breath sounds, no wheezing or crackles. No use of accessory muscles and no prolonged exhalation. Cardiac: Regular rhythm, no murmurs, no gallops, no rubs; could not appreciate JV pulse elevation. GI: Soft, mild RUQ direct tenderness. Extremities No clubbing,no cyanosis,no edema. Neuro: No gross motor deficits. Became tearful while discussing findings on imaging studies. Otherwise seems appropriate. Results & Data Results & Data Vital Signs (Past 12 Hours) Vital Signs Temp Pulse Pulse Resp BP Pulse Ox O2 Del Method 03/07/25 11:54 36.5 C 58 L 20 124/87 99 Room Air 03/07/25 08:00 52 L 03/07/25 07:40 36.4 C L 59 L 20 126/63 95 Room Air 03/07/25 03:10 52 L 03/07/25 02:34 36.9 C 54 L 20 100/53 L 94 Room Air 03/07/25 00:30 36.6 C 73 16 112/69 97 Room Air Laboratory Results 03/06/25 23:52 Aerobic Blood Culture - Pending Blood Anaerobic Blood Culture - Pending 03/06/25 23:52 Aerobic Blood Culture - Pending Blood Anaerobic Blood Culture - Pending 03/07/25 03/06/25 03/06/25 05:33 14:45 14:02 WBC 7.60 RBC 3.77 L Hgb 11.6 L D Hct 34.8 L MCV 92.3 MCH 30.8 MCHC 33.3 RDW Std Deviation 41.9 RDW Coeff of Kristyn 12.3 Plt Count 186 MPV 11.0 Immature Gran % (Auto) Neut % (Auto) Lymph % (Auto) [place] % (Auto) Eos % (Auto) Baso % (Auto) Neut # (Auto) Lymph # (Auto) [place] # (Auto) Eos # (Auto) Baso # (Auto) Immature Gran # (Auto) Sodium 138 Potassium 4.1 Chloride 107 Carbon Dioxide 22 Anion Gap 9 BUN 11 Creatinine 0.93 Est Cr Clr Drug Dosing 77.7 eGFR 90.24 BUN/Creatinine Ratio 11.8 Glucose 66 L Calcium 8.5 L Magnesium 2.4 Total Bilirubin 1.3 H AST 92 H ALT 112 H Alkaline Phosphatase 29 L Total Protein 5.9 L D Albumin 3.1 L Globulin 2.8 Albumin/Globulin Ratio 1.1 Lipase HCG, Quant Urine Color Yellow Urine Appearance Clear Urine pH 7.0 Ur Specific [place] 1.030 Urine Protein Trace H Urine Glucose (UA) Negative Urine Ketones 3+ H Urine Blood Negative Urine Nitrite Negative Urine Bilirubin Negative Urine Urobilinogen Negative Ur Leukocyte Esterase Trace H Urine WBC (Auto) 6-10 H Urine RBC (Auto) 0-2 U Hyaline Cast (Auto) 0-2 U Epithel Cells (Auto) 3-5 H Urine Bacteria (Auto) None Seen Urine Comment Monoscreen Negative 03/06/25 12:17 WBC 10.05 RBC 4.96 Hgb 15.3 Hct 45.8 MCV 92.3 MCH 30.8 MCHC 33.4 RDW Std Deviation 42.4 RDW Coeff of [place] 12.4 Plt Count 277 MPV 11.4 Immature Gran % (Auto) 0.9 Neut % (Auto) 81.4 Lymph % (Auto) 12.9 [place] % (Auto) 4.0 Eos % (Auto) 0.4 Baso % (Auto) 0.4 Neut # (Auto) 8.18 H Lymph # (Auto) 1.30 [place] # (Auto) 0.40 Eos # (Auto) 0.04 Baso # (Auto) 0.04 Immature Gran # (Auto) 0.09 Sodium 137 Potassium 3.7 Chloride 99 Carbon Dioxide 23 Anion Gap 15 H BUN 14 Creatinine 1.06 Est Cr Clr Drug Dosing 66.7 eGFR 77.13 BUN/Creatinine Ratio 13.2 Glucose 101 H Calcium 10.3 Magnesium 2.4 Total Bilirubin 1.3 H AST 180 H ALT 167 H Alkaline Phosphatase 47 Total Protein 8.5 H Albumin 4.7 Globulin 3.8 Albumin/Globulin Ratio 1.2 Lipase 12 HCG, Quant 1 Urine Color Urine Appearance Urine pH Ur Specific [place] Urine Protein Urine Glucose (UA) Urine Ketones Urine Blood Urine Nitrite Urine Bilirubin Urine Urobilinogen Ur Leukocyte Esterase Urine WBC (Auto) Urine RBC (Auto) U Hyaline Cast (Auto) U Epithel Cells (Auto) Urine Bacteria (Auto) Urine Comment Monoscreen Diagnostic Findings Gallbladder Ultrasound 03/06/25 13:44 EXAM: US Abdomen Limited Gallbladder INDICATION: Nausea, pain and elevated liver function tests. TECHNIQUE: Real-time ultrasound of the gallbladder with image documentation. COMPARISON: No relevant prior studies available. FINDINGS: Gallbladder: No gallstones, wall thickening or surrounding fluid. Common bile duct: No significant abnormality noted. No stones. No dilation. Pancreas: No significant abnormality noted. IMPRESSION: Normal gallbladder ultrasound. ACT 112: N/A Electronically signed by Irena Knox 03-06-2025 4:04 PM Abdomen/Pelvis CT 03/06/25 16:13 EXAM: CT Abdomen and Pelvis With Intravenous Contrast INDICATION: Nausea and vomiting. TECHNIQUE: Axial computed tomography images of the abdomen and pelvis with intravenous contrast. Sagittal and coronal reformatted images were created and reviewed. This CT exam was performed using one or more of the following dose reduction techniques: automated exposure control, adjustment of the mA and/or kV according to patient size, and/or use of iterative reconstruction technique. CONTRAST: 90 ml of Optiray 320 was administered intravenously. COMPARISON: No relevant prior studies available. FINDINGS: Limitations: None. Lung bases: No abnormality noted. Pleural space: No visualized pleural effusion or pneumothorax. Heart: No abnormality noted. Mediastinum: There is extensive pneumomediastinum, retroperitoneal emphysema and small amounts of free intraperitoneal air. ABDOMEN: Liver: No abnormality noted. Gallbladder and bile ducts: No calcified stones or surrounding fluid. No ductal dilation. Pancreas: Homogeneous enhancement. No mass, inflammation or ductal dilation. Spleen: No significant abnormality noted. Adrenals: No significant abnormality noted. Kidneys and ureters: Normal enhancement. No mass, hydronephrosis or visualized stone. Stomach and bowel: Intestinal assessment is limited in the absence of enteric contrast. PELVIS: Appendix: No findings to suggest acute appendicitis. Bladder: No filling defects to suggest mass or large stone. No inflammation. Reproductive: No abnormalities noted. ABDOMEN and PELVIS: Intraperitoneal space: No free air. No significant fluid collection. Bones/joints: No acute changes. Soft tissues: There is subcutaneous gas extending along the flanks into the right groin. Vasculature: No abdominal aortic aneurysm. Lymph nodes: No pathologically enlarged lymph nodes. IMPRESSION: Extensive pneumoperitoneum, emphysematous changes in the retroperitoneum, small amounts of free air in the peritoneal cavity and dissecting subcutaneous gas in the flanks to the right groin. These findings generally reflect perforation possibly from the duodenum into the retroperitoneum and extending into the chest. Repeat CT of the abdomen and pelvis and scan of the chest recommended following oral contrast to assess for gastric perforation. Findings discussed with Juan C at 6pm . ACT 112: N/A Electronically signed by Irena Knox 03-06-2025 6:02 PM Abdomen/Pelvis CT 03/06/25 18:00 EXAMINATION: CT of the chest, abdomen and pelvis performed without the administration of IV contrast, with oral contrast TECHNIQUE: Helical CT images from the lung apices through the symphysis pubis were obtained without IV contrast, and with oral contrast. Coronal and sagittal reformatted images were generated at a workstation for further assessment. Dose reduction techniques were achieved by using automatic exposure control and/or adjustment of mA and/or kV according to patient size and/or use of iterative reconstruction technique. COMPARISON: Same-day CT abdomen/pelvis HISTORY: Pneumomediastinum FINDINGS: Redemonstrated extensive pneumomediastinum, with soft tissue gas throughout the base of the neck, the upper portions of the back and axillary regions. The free air extends into the abdomen/pelvis region, primarily involving the pneumoperitoneum, surrounding the kidneys, and tracking into the iliopsoas musculature, and into the subcutaneous tissues of the groin, primarily on the right, and into the anterior hip and thigh musculature fascial planes. There is air seen in the prevesical space. There does not appear to be significant intraperitoneal air. There is also free air tracking anterior and posterior to the liver and spleen. Oral contrast administered, with some seen in the lower esophagus and stomach, also into the duodenum, and throughout the proximal small bowel, without extravasation. There is also no free fluid in the chest or abdomen. No consolidation of the lungs. No pneumothorax. Air seems to track along the surface of the hemithoraces, however which appears deep to the parietal pleura without resulting in pneumothorax. A few curvilinear areas of air is seen to track through the lung parenchyma as seen in the left lower lobe on series 3 image 53. No solid organ injury in the chest, abdomen or pelvis. The abdominal and pelvic organs appear unchanged from the CT from earlier today. The heart, pulmonary artery and thoracic aorta are within normal limits. IMPRESSION: Extensive pneumomediastinum, as well as air tracking into the subcutaneous tissues of the chest and body wall. Emphysema tracking below the diaphragm, appears to be primarily retroperitoneal, and tracks into the inguinal soft tissues and the fascial planes of the hip musculature. There does not appear to be true free air in the peritoneum. 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 Findings discussed with Dr. Macario by Dr. Mcmullen at 7:15 PM, 03/06/2025 Electronically signed by Regino Mcmullen 03-06-2025 7:[address] 03/06/25 18:00 EXAMINATION: CT of the chest, abdomen and pelvis performed without the administration of IV contrast, with oral contrast TECHNIQUE: Helical CT images from the lung apices through the symphysis pubis were obtained without IV contrast, and with oral contrast. Coronal and sagittal reformatted images were generated at a workstation for further assessment. Dose reduction techniques were achieved by using automatic exposure control and/or adjustment of mA and/or kV according to patient size and/or use of iterative reconstruction technique. COMPARISON: Same-day CT abdomen/pelvis HISTORY: Pneumomediastinum FINDINGS: Redemonstrated extensive pneumomediastinum, with soft tissue gas throughout the base of the neck, the upper portions of the back and axillary regions. The free air extends into the abdomen/pelvis region, primarily involving the pneumoperitoneum, surrounding the kidneys, and tracking into the iliopsoas musculature, and into the subcutaneous tissues of the groin, primarily on the right, and into the anterior hip and thigh musculature fascial planes. There is air seen in the prevesical space. There does not appear to be significant intraperitoneal air. There is also free air tracking anterior and posterior to the liver and spleen. Oral contrast administered, with some seen in the lower esophagus and stomach, also into the duodenum, and throughout the proximal small bowel, without extravasation. There is also no free fluid in the chest or abdomen. No consolidation of the lungs. No pneumothorax. Air seems to track along the surface of the hemithoraces, however which appears deep to the parietal pleura without resulting in pneumothorax. A few curvilinear areas of air is seen to track through the lung parenchyma as seen in the left lower lobe on series 3 image 53. No solid organ injury in the chest, abdomen or pelvis. The abdominal and pelvic organs appear unchanged from the CT from earlier today. The heart, pulmonary artery and thoracic aorta are within normal limits. IMPRESSION: Extensive pneumomediastinum, as well as air tracking into the subcutaneous tissues of the chest and body wall. Emphysema tracking below the diaphragm, appears to be primarily retroperitoneal, and tracks into the inguinal soft tissues and the fascial planes of the hip musculature. There does not appear to be true free air in the peritoneum. 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 Findings discussed with Dr. Macario by Dr. Mcmullen at 7:15 PM, 03/06/2025 Electronically signed by Regino Mcmullen 03-06-2025 7:18 PM Medications Administered Home Medications Medication Instructions Recorded Confirmed Last Taken Flintstones Multivitamin 2 tabs PO DAILY ##0 05/15/15 03/06/25 Unknown cyproheptadine 4 mg tablet 4 mg PO UD 03/06/25 03/06/25 Unknown norethindrone acetate 1.5 1 tab PO DAILY 03/06/25 03/06/25 Unknown mg-ethinyl estradiol 30 mcg tablet ([place]) sertraline 25 mg tablet 25 mg PO DAILY 03/06/25 03/06/25 Unknown Active Medications Generic Name Dose Route Start Last Admin Trade Name Freq PRN Reason Stop Dose Admin Pantoprazole Sodium 40 mg in 10 mls @ 5 mls/min 03/06/25 23:34 03/07/25 09:08 Protonix IV 04/05/25 23:33 5 mls/min DAILY ANTOINETTE Administration Piperacillin Sod/Tazobactam Sod 4.5 gm in 100 mls @ 25 mls/hr 03/07/25 02:00 03/07/25 09:08 Zosyn IV 03/09/25 01:59 25 mls/hr Q8H ANTOINETTE Administration Protocol Acetaminophen 1,000 mg in 100 mls @ 400 mls/hr 03/06/25 23:34 03/07/25 10:58 Ofirmev IV 03/09/25 23:33 Infused Q8H PRN Infusion Pain or Fever Ondansetron HCl 4 mg 03/06/25 23:34 03/07/25 11:42 Ondansetron Inj 2 Mg/Ml 2 Ml Vial IV 04/05/25 23:33 4 mg Q6H ANTOINETTE Administration PG Care Time/CCT Total # of Minutes Spent Total Time Spent with Patient: Total time spent is greater than 50% in coordination of care (as documented) at patient's floor/unit and/or counseling patient: 65 minutes. Coding Level of Care Code 64032 IN/OBS CONSULT LVL 4,60M Diagnoses Pneumomediastinum J98.2 Pneumoperitoneum K66.8 Nausea R11.0 Elevated LFTs R79.89 Anxiety F41.9 Starvation ketoacidosis T73.0XXA; E87.29 Time Spent (min) 65
[2025-03-07] MEDS: D5W AND NSS 1,000 ML IV SCH (12:39)
[2025-03-07] MEDS: DEXTROMETHORPHAN POLYMR COMPLX 30MG/5 ML BTL PO SCH (12:39)
[2025-03-07 12:43] LABS: Hematocrit (blood only) 35.3 % (37.0-47.0); Hemoglobin 12.3 g/dl (12.0-16.0)
--- NOTE | 2025-03-07 13:23 | XRay Report ---
XR chest 1V portable CLINICAL HISTORY: Follow up pneumomediastinum COMPARISON STUDY: CT yesterday FINDINGS: Pneumomediastinum and subcutaneous emphysema are grossly stable. Heart size and pulmonary v asculature are normal. No consolidation or pleural effusion seen. No pneumothorax seen. IMPRESSION: Stable exam. ACT 112: Negative or not required by law. Electronically signed by: Jesus Carlton M.D. 03/07/2025 1:22 PM
[2025-03-07] MEDS: MELATONIN 3 MG TAB PO PRN (22:07)
[2025-03-08 07:23] LABS: Hematocrit (blood only) 32.6 % (37.0-47.0); Hemoglobin 11.6 g/dl (12.0-16.0); Mean Corpuscular Hemoglobin 32.3 pg (25.0-34.0); Mean Corpuscular Volume 90.8 fL (80.0-100.0); Platelet Count 177 K/uL (130-400); RDW Standard Deviation 40.1 fL (36.4-46.3); Red Blood Count 3.59 M/uL (4.20-5.40); White Blood Count 4.62 K/ul (4.8-10.8)
[2025-03-08 07:46] LABS: Alanine Aminotransferase 101.0 U/L (7-52); Albumin Globulin Ratio 1.1 (0.9-2); Albumin Level 3.1 gm/dl (3.4-5.0); Alkaline Phosphatase 31.0 U/L (34-104); Anion Gap 6.0 (3-11); Bilirubin,Total 1.0 mg/dl (0.2-1.0); Blood Urea Nitrogen 8.0 mg/dl (6-23); Calcium 8.1 mg/dl (8.6-10.3); Carbon Dioxide 23.0 mmol/L (21-32); Chloride 109.0 mmol/L (98-107); Creatinine Clr Calc Pharmacy 78.1 ml/min; Globulin 2.7 gm/dl (2.5-4.0); Glucose 108.0 mg/dl (70-99(Fasting)); Magnesium 2.0 mg/dl (1.7-2.4); Potassium 3.5 mmol/L (3.5-5.1); Sodium 138.0 mmol/L (136-145); Total Protein 5.8 gm/dl (6.0-8.3)
[2025-03-08 09:09] LABS: Hep B Surface Ag with confirm Negative (Negative)
--- NOTE | 2025-03-08 09:13 | XRay Report ---
XR chest 1V portable CLINICAL HISTORY: Follow up pneumomediastinum COMPARISON STUDY: 03/07/2025 FINDINGS: Heart size and pulmonary vasculature are normal. No consolidation or pleural effusion. No p neumothorax. Subcutaneous emphysema at the upper chest and mild pneumomediastinum are stable. IMPRESSION: Stable exam. ACT 112: Negative or not required by law. Electronically signed by: Jesus Carlton M.D. 03/08/2025 9:12 AM
[2025-03-08 09:14] LABS: Hep C Ab Rflx HepCQuant RNA Negative (Negative)
[2025-03-08 11:33] VITALS: BP 116/74; RESP 18; TEMP 98.2; O2SAT 100
--- NOTE | 2025-03-08 14:09 | Discharge Summary ---
Date of Service March 08, 2025 Admission HPI Per Admitting Provider Patient is a 19-year-old female with history of anxiety disorder, iron deficiency and no other significant medical problems presents with history of intractable nausea, vomiting, abdominal pain. Patient was evaluated by her primary care physician and was started on Zoloft and cyproheptadine recently. After taking first dose of Zoloft and cyproheptadine, patient started to develop intractable nausea, vomiting associated with some abdominal discomfort. Patient states that she had multiple episodes of nonbloody vomiting and reported some right lower quadrant abdominal discomfort dull, aching sensation. Patient had very poor oral intake secondary to nausea. She admits to have significant weight loss of about 6 pounds in the last week. She admits to have lost about 17 pounds since last April 2024. Patient states that over the past 5 to 6 months she has been dealing with anxiety and depression and plans to follow-up with psychotherapist. Intermittently vapes tobacco but denies any drug or alcohol use. Also denies any chest pain, dyspnea, dizziness, cough, fever, chills, headache, blood in stools, diarrhea, dysuria, hematuria. Admission Exam Per Admitting Provider Physical Exam: Vitals signs as noted above General Appearance: Thin, frail, no apparent distress Head: normocephalic, Atraumatic Eyes: normal inspection, EOMI Neck: supple, Trachea midline Respiratory/Chest: Normal breath sounds, B/L crackles, No accessory muscle use Cardiovascular: S1, S2, No murmur Abdomen/GI:Soft, RLQ, LLQ tender, no guarding or rigidity, bowel sounds present Extremities/Musculoskeletal:normal inspection, no edema Neurologic/Psych:AAOX3, grossly no focal neurological deficits Skin: normal color, warm Principal Diagnosis Pneumomediastinum Pneumoperitoneum concern, ruled out Transaminitis Anxiety disorder Discharge Exam General Appearance: Thin, frail, no apparent distress Head: normocephalic, Atraumatic Eyes: normal inspection, EOMI Neck: supple, Trachea midline Respiratory/Chest: Normal breath sounds, B/L crackles, No accessory muscle use some crepitus over left subclavicular and left axilla noted. Cardiovascular: S1, S2, No murmur Sternal chest tenderness on palpation, no crepitus noted along body wall/chest. Abdomen/GI:Soft, RLQ, LLQ mild tender, no guarding or rigidity, bowel sounds present Extremities/Musculoskeletal:normal inspection, no edema Neurologic/Psych:AAOX3, grossly no focal neurological deficits Skin: normal color, warm Discharge Data Allergies Allergy/AdvReac Type Severity Reaction Status Date / Time No Known Allergies Allergy Unknown Verified 05/15/15 15:59 Consultations 03/06/25 20:33 ED Decision to Admit Stat 03/06/25 23:34 Consult General Surgery Routine Consult Pulmonology Routine Ordered Studies 03/06/25 13:44 US gallbladder Stat 03/06/25 16:13 CT abd pelvis IV con only Stat 03/06/25 18:00 CT abd pelvis oral con only Stat CT chest diagnostic wo con Stat Hospital Course (1) Anxiety: (2) Intractable nausea and vomiting: (3) Pneumomediastinum: (4) Pneumoperitoneum: Plan 19-year-old female with history of anxiety disorder, iron deficiency and no other significant medical problems presents with history of intractable nausea, vomiting, abdominal pain. Patient was evaluated by her primary care physician and was started on Zoloft and cyproheptadine recently. After taking first dose of Zoloft and cyproheptadine, patient started to develop intractable nausea, vomiting associated with some abdominal discomfort. Patient states that she had multiple episodes of nonbloody vomiting and reported some right lower quadrant abdominal discomfort dull, aching sensation. Patient had very poor oral intake secondary to nausea. She admits to have significant weight loss of about 6 pounds in the last week [employer]. She admits to have lost about 17 pounds since last April 2024. Patient states that over the past 5 to 6 months she has been dealing with anxiety and depression and plans to follow-up with psychotherapist. Intermittently vapes tobacco but denies any drug or alcohol use. She is being managed for the following: Pneumomediastinum R/O bowel perforation due to intractable nausea, vomiting Pneumoperitoneum concern, ruled out --CT: Extensive pneumomediastinum, as well as air tracking into the subcutaneous tissues of the chest and body wall. Emphysema tracking below the diaphragm, appears to be primarily retroperitoneal, and tracks into the inguinal soft tissues and the fascial planes of the hip musculature. There does not appear to be true free air in the peritoneum. 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 Patient with resolution of chest pain/abdominal pain. Patient denies further nausea and cough. Chest x-ray with stable pneumomediastinum. Discussed with pulmonology, trey for discharge from their point of view. Patient tolerated diet and moving around okay with no reproduction of pain. Patient and her mother educated regarding warning signs and need to return to emergency. Continue with the scheduled antiemetics and antitussives for next 5 days. Avoid strenuous activity. Transaminitis: Likely due to above, Monitor LFTs - trending down, Hepatitis panel trending down, patient advised to follow-up with PCP for monitoring/possible ultrasound liver as an outpatient. 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 DVT Px: SCDs for now CODE STATUS: Full code Patient is being discharged to home with following instructions at the point of discharge: Follow-up with your primary care physician within a week time and likely you will need labs CBC/CMP/magnesium/phosphorus. Avoid strenuous activity, follow-up with your primary care physician within a week time and have chest x-ray set up within a week time to follow-up on the pneumomediastinum. As discussed at the bedside, if your subcutaneous crepitus are increasing, if your chest pain is increasing, if increasing shortness of breath or abdominal pain, report to emergency immediately. Your liver enzymes are elevated likely in the setting of acute illness/recent Zoloft and cyproheptadine use. Also you had nausea and vomiting after those 2 medications were started, will hold these medications until you follow-up with your psychologist/psychiatry as an outpatient. You will need repeat liver function test for ongoing monitoring of your LFT and possible ultrasound of the liver. Coordinate with your PCP office to set up the test. Follow up w/ PCP office on final results of hepatitis panel sent while inpatient. Take your medications as prescribed. Please make sure that you are able to get your medications today by calling your pharmacy before you leave the hospital so that your treatment continuity is not broken. Home Health Attestation I certify that this patient is under my care and that I, or a physicians assistant chief nursing officer working with me, had a face to-face encounter that meets the home health [id number] encounter requirements with this patient. The encounter with the patient was in whole, or in part, for the following medical condition, which is the primary reason for home health care (list medical condition): I certify that, based on my findings, the following services are medically necessary home health services: My clinical findings support the need for the above services because: Further, I certify that my clinical findings support that this patient is homebound (i.e. absences from home require considerable and taxing effort and are for medical reasons or orthodox services or infrequently or of short duration when for other reasons) because: Certification for Home Health Services: Based on the above findings, I certify that this patient is confined to the home and needs intermittent residential care, physical therapy and/or speech therapy or continues to need occupational therapy. The patient is under my care, and I have initiated the establishment of the plan of care. This patient will be followed by a physician who will periodically review the plan of care. Total Time Total Time Spent Total Time Spent (In Minutes): 40 Discharge Plan Discharge Items Patient Disposition: Home - Self-Care Reason For Visit: PNEUMOMEDISTINUM Discharge Diagnosis: Pneumomediastinum Pneumoperitoneum concern, ruled out Transaminitis Anxiety disorder Condition on Discharge: Fair Activity: As commented below Activity Comment: avoid strenous activity Non-emergency contact: Primary Care Provider Call non-emergency contact if: you have any medication questions and your symptoms worsen Follow-up/Referrals: Zane Sanders MD [Primary Care Provider] - (Date & Time 03/14/2025 9:40 AM Provider: Zane Sanders MD [facility] ) Diet: Regular Addtl Attending Provider Instructions: Follow-up with your primary care physician within a week time and likely you will need labs CBC/CMP/magnesium/phosphorus. Avoid strenuous activity, follow-up with your primary care physician within a week time and have chest x-ray set up within a week time to follow-up on the pneumomediastinum. As discussed at the bedside, if your subcutaneous crepitus are increasing, if your chest pain is increasing, if increasing shortness of breath or abdominal pain, report to emergency immediately. Your liver enzymes are elevated likely in the setting of acute illness/recent Zoloft and cyproheptadine use. Also you had nausea and vomiting after those 2 medications were started, will hold these medications until you follow-up with your psychologist/psychiatry as an outpatient. You will need repeat liver function test for ongoing monitoring of your LFT and possible ultrasound of the liver. Coordinate with your PCP office to set up the test. Follow up w/ PCP office on final results of hepatitis panel sent while inpatient. Take your medications as prescribed. Please make sure that you are able to get your medications today by calling your pharmacy before you leave the hospital so that your treatment continuity is not broken. Pending Studies at Discharge: Yes Stand-Alone Forms: My [facility] [employer], Smoking Cessation Medications and DC Order Prescriptions: New ondansetron 4 mg tablet,disintegrating 4 mg PO Q8H 5 Days Qty: 15 0RF dextromethorphan polistirex [Delsym 12 hour] 30 mg/5 mL Suspension,Extended Rel 12 Hr 30 mg PO Q12H 5 Days Qty: 89 0RF Continued Flintstones Multivitamin 1 CHW CHW 2 tabs PO DAILY Qty: 0 Patient Comments: 03/06- otc unable to verify norethindrone ac-eth estradiol [[place]] 1.5-30 mg-mcg tablet 1 tab PO DAILY Discontinued cyproheptadine 4 mg tablet 4 mg PO UD Rx Instructions: 1/2 TAB qid FOR 1 WEEK, THEN 1 TAB qid sertraline 25 mg tablet 25 mg PO DAILY Discharge Orders: Discharge Order (Routine); Ordered 03/08/25 Ordered By: Alberto Loera Admission Data Admit Date/Time: 03/06/25 21:50 Attending Provider: Alberto Loera Admit Provider: Ruddy Jenkins Primary Care Provider: Zane Sanders Other Providers: Yunior Motley; Miles Betancur; Reza Coe; Helene Jacobs; Isaiah Abbott; Dannie Britton; Chiqui Barker; Christie Pittman; Pete Dotson Jr; Kolton Jacobsen; Kana Camacho; Lilian Hernandez; Rangel Hobbs; Avi Krian; Ariadne Hayward; Vivian Little; Hong Morrison; Harjeet Narayanan; Maricruz Moreno; Dannie Mattson
--- NOTE | 2025-03-08 15:21 | Electrocardiogram Report ---
Test Reason : Blood Pressure : */* mmHG Vent. Rate : 57 BPM Atrial Rate : 57 BPM P-R Int : 108 ms QRS Dur : 90 ms QT Int : 410 ms P-R-T Axes : 64 79 57 degrees QTcB Int : 399 ms Sinus bradycardia with sinus arrhythmia Otherwise normal ECG No previous ECGs available Confirmed by Regino Sharif ([id number]) on 03/08/2025 3:21:17 PM Referred By: REFERRED SELF Confirmed By: Regino Sharif
[2025-03-08 15:24] VITALS: PULSE 63
[2025-03-09 13:06] LABS: Hepatitis A Antibody IgM NON-REACTIVE (NON-REACTIVE); Hepatitis B Core Antibody IgM NON-REACTIVE (NON-REACTIVE)
== END 2025-03-08 15:33 | disposition home or self-care (01) | DRG 199 ==
LOC: ED 11:58 → 2E 21:50